=== PATIENT | female | born 1945 | race African-American/Black ===

== ENCOUNTER 2017-01-10 10:18 | Emergency (ER) | payer SELFPAY ==
[~2017-01-10] VITALS: Ht 165.1 cm; Wt 76.0 kg
[2017-01-10 10:20] VITALS: BP 184/88; PULSE 96; RESP 20; TEMP 98.2; O2SAT 99
[2017-01-10] MEDS ORDERED: ATEN50TA PO ×2 (10:57→11:39)
[2017-01-10] MEDS ORDERED: METF1000 PO (10:57)
[2017-01-10] MEDS ORDERED: ASPI325T PO (10:57)
[2017-01-10] MEDS ORDERED: NIFE20 PO (10:57)
[2017-01-10] MEDS ORDERED: [UNRECOGNIZED DRUG - OTHER] PO (10:57)
[2017-01-10] MEDS ORDERED: SPIR25 PO (10:57)
[2017-01-10] MEDS ORDERED: NOVO7030P2 SQ ×2 (10:57)
[2017-01-10] MEDS ORDERED: [UNRECOGNIZED DRUG - OTHER] PO (10:57)
[2017-01-10 11:05] LABS: AUTOMATED NEUTROPHIL # 5.7 TH/MM3 (1.8-7.7); BASOPHIL # 0.1 TH/MM3 (0-0.2); BASOPHIL % 0.9 % (0.0-2.0); EOSINOPHIL # 0.3 TH/MM3 (0-0.4); HEMATOCRIT 36.1 % (35.0-46.0); HEMO FLAGS DIFF FINAL; LYMPH % 27.8 % (9.0-44.0); LYMPHOCYTE # 2.5 TH/MM3 (1.0-4.8); MEAN CELL VOLUME 85.8 FL (80.0-100.0); MEAN CORPUSCULAR HEMOGLOBIN 28.3 PG (27.0-34.0); MONO % 5.9 % (0.0-8.0); NEUT % 62.4 % (16.0-70.0); PLATELET COUNT 361 TH/MM3 (150-450); RED BLOOD COUNT 4.21 MIL/MM3 (4.00-5.30); RED CELL DISTRIBUTION WIDTH 12.9 % (11.6-17.2); WHITE BLOOD COUNT 9.1 TH/MM3 (4.0-11.0)
--- NOTE | 2017-01-10 11:06 | PD ---
HPI Chief Complaint: Hypertension Time Seen by Provider: 10:40 Travel History International Travel<30 days: No Contact w/Intl Traveler<30days: No Traveled to known affect area: No History of Present Illness HPI This is a 71-year-old female with history of hypertension who presents requesting medication refill. The patient is currently visiting from [place], she arrived in November 07, plans at this time are to return on January 14. She ran out of her blood pressure medications 1 week ago and although she had a prescription form her physician in [place], the pharmacy would not accept it. For this reason she presents for evaluation. Her only complaint at this time is of a pressure in her head which she reports that she gets frequently she when she has elevated blood pressure. She denies any blurred vision, chest pain or shortness of breath, palpitations, nausea or vomiting, numbness or tingling or weakness. She has no other complaints at this time. PFSH Past Medical History Cardiovascular Problems: Yes (HTN) Diabetes: Yes Patient Takes Glucophage: Yes Hypertension: Yes ?: Not Past Surgical History Hysterectomy: Yes Social History Alcohol Use: No Tobacco Use: No Substance Use: No Allergies-Medications (Allergen,Severity, Reaction): Coded Allergies: No Known Allergies (Unverified , 01/10/17) Reported Meds & Prescriptions Reported Meds & Active Scripts Active Amlodipine (Amlodipine Besylate) 10 Mg Tab 10 Mg PO DAILY 14 Days Atenolol 50 Mg Tab 50 Mg PO DAILY 14 Days Reported Simvastatin 10 Mg Tab 10 Mg PO HS Aspirin 325 Mg Tab 325 Mg PO DAILY Novolin 70-30 Inj (Insulin Human Isoph/Insulin Regular) 1,000 Unit/10 Ml Vial 15 Units SQ IN PM Novolin 70-30 Inj (Insulin Human Isoph/Insulin Regular) 1,000 Unit/10 Ml Vial 30 Units SQ IN AM Metformin (Metformin HCl) 1,000 Mg Tab 1,000 Mg PO BID With meals Nifedipine 20 Mg Cap 20 Mg PO BID Atenolol 50 Mg Tab 50 Mg PO DAILY Aldactone (Spironolactone) 25 Mg Tab 25 Mg PO DAILY [Coveram 10MG/10MG] 1 Tab PO DAILY Perindopril Arginine 10mg/Amlodipine 10mg [Vastarel Mr 35MG] 35 Mg PO BID Trimetazidine Dihydrochloride Review of Systems Except as stated in HPI: all other systems reviewed are Neg Physical Exam Narrative GENERAL: Pleasant well-developed well-nourished female in no acute distress sitting upright in hospital bed. Vital signs reviewed. SKIN: Warm and dry. HEAD: Atraumatic. Normocephalic. EYES: Pupils equal and round. No scleral icterus. No injection or drainage. ENT: No nasal bleeding or discharge. Mucous membranes pink and moist. NECK: Trachea midline. No JVD. CARDIOVASCULAR: Regular rate and rhythm. No murmur appreciated. RESPIRATORY: No accessory muscle use. Clear to auscultation. Breath sounds equal bilaterally. GASTROINTESTINAL: Abdomen soft, non-tender, nondistended. Hepatic and splenic margins not palpable. MUSCULOSKELETAL: No obvious deformities. No clubbing. No cyanosis. No edema. NEUROLOGICAL: Awake and alert. No obvious cranial nerve deficits. Motor grossly within normal limits. Normal speech. PSYCHIATRIC: Appropriate mood and affect; insight and judgment normal. Data Data Last Documented VS Vital Signs Date Time Temp Pulse Resp B/P (MAP) Pulse Ox O2 Delivery O2 Flow Rate FiO2 01/10/17 10:20 98.2 96 20 184/88 (120) 99 Room Air Orders Orders Complete Blood Count With Diff (01/10/17 10:44) Basic Metabolic Panel (Bmp) (01/10/17 10:44) Ct Brain W/O Iv Contrast(Rout) (01/10/17 ) Electrocardiogram (01/10/17 ) Creatine Kinase (Cpk) (01/10/17 11:06) Troponin I (01/10/17 11:06) Sodium Chlor 0.9% 1000 Ml Inj (Ns 1000 M (01/10/17 11:27) Insulin Human Regular Inj (Novolin R Inj (01/10/17 11:45) Atenolol (Tenormin) (01/10/17 11:45) Amlodipine (Norvasc) (01/10/17 11:45) Labs Laboratory Tests Test 01/10/17 10:52 White Blood Count 9.1 TH/MM3 Red Blood Count 4.21 MIL/MM3 Hemoglobin 11.9 GM/DL Hematocrit 36.1 % Mean Corpuscular Volume 85.8 FL Mean Corpuscular Hemoglobin 28.3 PG Mean Corpuscular Hemoglobin Concent 33.0 % Red Cell Distribution Width 12.9 % Platelet Count 361 TH/MM3 Mean Platelet Volume 8.2 FL Neutrophils (%) (Auto) 62.4 % Lymphocytes (%) (Auto) 27.8 % Monocytes (%) (Auto) 5.9 % Eosinophils (%) (Auto) 3.0 % Basophils (%) (Auto) 0.9 % Neutrophils # (Auto) 5.7 TH/MM3 Lymphocytes # (Auto) 2.5 TH/MM3 Monocytes # (Auto) 0.5 TH/MM3 Eosinophils # (Auto) 0.3 TH/MM3 Basophils # (Auto) 0.1 TH/MM3 CBC Comment DIFF FINAL Differential Comment Blood Urea Nitrogen 39 MG/DL Creatinine 2.29 MG/DL Random Glucose 297 MG/DL Calcium Level 8.8 MG/DL Sodium Level 135 MEQ/L Potassium Level 5.5 MEQ/L Chloride Level 106 MEQ/L Carbon Dioxide Level 20.7 MEQ/L Anion Gap 8 MEQ/L Estimat Glomerular Filtration Rate 21 ML/MIN Total Creatine Kinase 150 U/L Troponin I LESS THAN 0.02 NG/ML MDM Medical Decision Making Medical Screen Exam Complete: Yes Emergency Medical Condition: Yes Medical Record Reviewed: Yes Interpretation(s) EKG reveals normal sinus rhythm, T wave inversions are noted in the lateral leads CBC unremarkable BMP sodium 135 potassium 5.5 BUN 39 and creatinine 2.29 glucose 297 Differential Diagnosis Medication refill, hypertensive urgency, intracranial hemorrhage, hypertensive emergency Narrative Course This is a 71-year-old female from [place] who has run out of her antihypertensive medication and is requesting a refill. Her only medical complaint is of a mild pressure in her head which she reports that she feels frequently when her blood pressure is elevated. Physical examination is reassuring. Plan is for basic lab work, EKG, CT of the brain. EKG revealed T-wave inversions in lateral leads, no comparison on file, no symptoms to suggest acute coronary syndrome. CK and troponin levels have been added on. Her lab work reveals a BUN of 39, creatinine of 2.29, she reports that recently she was told that her kidney function was low and this is being monitored by her physician in [place]. Her glucose is 297. Her potassium is 5.5. The patient reports that she is currently taking insulin 70 3025 units in the morning. She is prescribed to take 15 units in the evening however she has been having hypoglycemic episodes nocturnally and so she quit using it at nighttime. She is encouraged to discuss with her primary care physician so that he can adjust her insulin regimen. She will be given 1 L of IV fluids and 5 units of insulin which will help with her hyperglycemia and her elevated potassium. CT brain reveals Focal hypodensity in the right internal capsule and khan radiata suggesting infarction, age indeterminant. May consider performing MRI to help differentiate between acute and chronic. 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 She denies any acute focal neurologic deficits noted suggest an acute CVA. The medications that she has run out of are atenolol 50 mg daily, spironolactone 25 mg daily, coveram([id number]) daily. In the setting of mild hyperkalemia, her spironolactone and SHANDA inhibitor will be briefly held. She will be given refills of her atenolol and amlodipine. Recommended following up closely with her primary care physician for repeat blood work and to return for any acutely new or worsening symptoms. Procedures EKG Prior to Arrival: Yes Diagnosis Primary Impression: Hypertension Qualified Codes: I10 - Essential (primary) hypertension Additional Impressions: Hyperkalemia Renal insufficiency Medication refill Additional Instructions: As discussed, your potassium was mildly high at 5.5. Follow-up with your primary care physician for repeat potassium testing. Your kidney function was low with a GFR of 21, BUN 39, creatinine 2.29. Discussed with your primary care physician to compared to her baseline kidney function. Discussed your nighttime insulin dosing with your primary care physician for adjustment. Return for any acutely new or worsening symptoms. Med/Other Pt SpecificInfo: Prescription(s) given Scripts Amlodipine (Amlodipine) 10 Mg Tab 10 MG PO DAILY for Blood Pressure Management for 14 Days, TAB 0 Refills Prov: Tomas Kumar MD 01/10/17 Atenolol (Atenolol) 50 Mg Tab 50 MG PO DAILY for Blood Pressure Management for 14 Days, #30 TAB 0 Refills Prov: Tomas Kumar MD 01/10/17 Disposition: 01 DISCHARGE HOME Condition: Stable Mick Narvaez Jan 10, 2017 11:06
[2017-01-10] MEDS ORDERED: SIMV10TA PO (11:23)
[2017-01-10 11:26] LABS: BICARBONATE 20.7 MEQ/L (21.0-32.0); POTASSIUM 5.5 MEQ/L (3.5-5.1)
[2017-01-10] MEDS ORDERED: SODIUM CHLOR 0.9% 1000 ML INJ 1,000 ML IV SCH (11:27)
[2017-01-10] MEDS ORDERED: AMLO10TA2 PO (11:39)
[2017-01-10] MEDS ORDERED: INSULIN HUMAN REGULAR 1,000 UNITS/10 ML VIAL IV PUSH ONE (11:45)
[2017-01-10] MEDS ORDERED: ATENOLOL 50 MG TAB PO ONE (11:45)
--- NOTE | 2017-01-10 12:13 | RADRPT ---
EXAM DATE/TIME: 01/10/2017 11:12 [facility] COMPARISON: No previous studies available for comparison. INDICATIONS : Head pressure , elevated blood pressure RADIATION DOSE: 34.20 CTDIvol (mGy) MEDICAL HISTORY : Hypertension. Diabetes mellitus type 1. SURGICAL HISTORY : Hysterectomy. ENCOUNTER: Initial ACUITY: 1 day PAIN SCALE: 3/10 LOCATION: cranial TECHNIQUE: Multiple contiguous axial images were obtained of the head. Using automated exposure control and adj ustment of the mA and/or kV according to patient size, radiation dose was kept as low as reasonably a chievable to obtain optimal diagnostic quality images. DICOM format image data is available electro nically for review and comparison. FINDINGS: CEREBRUM: There is a focal area of hypodensity involving the khan radiata and extending down to the internal capsule on the right side measuring up to 12 mm in thickness. There is possible extra-axial enlargem ent of the body of the right lateral ventricle. No evidence of hemorrhage. No evidence of midline s hift. There is good reed-white matter differentiation throughout the remainder of the supratentorial brain. No extra-axial fluid or blood collections. POSTERIOR FOSSA: The cerebellum and brainstem are intact. The 4th ventricle is midline. The cerebellopontine angle i s unremarkable. EXTRACRANIAL: The visualized portion of the orbits is intact. SKULL: The calvaria is intact. No evidence of skull fracture. CONCLUSION: Focal hypodensity in the right internal capsule and khan radiata suggesting infarction, age indeter minant. May consider performing MRI to help differentiate between acute and chronic. Danny Browning MD on January 10, 2017 at 12:09 Board Certified Radiologist. This report was verified electronically.
[2017-01-10 12:33] LABS: CREATINE KINASE 150 U/L (26-192)
[2017-01-10 12:43] VITALS: BP 173/76
--- NOTE | 2017-01-11 13:02 | EKG ---
Date Performed: 01/10/2017 Time Performed: 10:54:31 PTAGE: 71 years EKG: Sinus rhythm POSSIBLE LEFT ATRIAL ENLARGEMENT MODERATE T-WAVE ABNORMALITY, CONSIDER LATERAL ISCHEMIA ABNORMAL ECG NO PREVIOUS TRACING DOCTOR: Matthew Garcia Interpretating Date/Time 01/11/2017 12:53:52
== END 2017-01-10 13:30 | disposition home or self-care (01) ==
LOC: NEPD 10:18
DX: I10 Essential (primary) hypertension (principal); E87.5 Hyperkalemia; N28.9 Disorder of kidney and ureter, unspecified; E11.9 Type 2 diabetes mellitus without complications; Z79.84 Long term (current) use of oral hypoglycemic drugs; R94.31 Abnormal electrocardiogram [ECG] [EKG]
CPT/HCPCS: 70450; 80048; 82550; 84484; 85025; 93005; 96361; 96374; 99285; J1815; J7030